=== PATIENT | female | born 1945 | race African-American/Black ===

== ENCOUNTER 2018-02-08 13:54 | Outpatient (CLI) | payer MEDICARE, MEDICAID ==
--- NOTE | 2018-02-08 15:38 | RAD ---
2 VIEWS LUMBAR SPINE: Date: 02/08/18 INDICATION: Low back pain. FINDINGS: There are five lumbar-type vertebrae. There is mild multilevel disc degenerative disease, most pronounced at L5-S1. There are vascular calc ifications involving the abdominal aorta. No acute fracture or subluxation is evident. Small phleboliths seen within the left pelvis. IMPRESSION: Mild spondylosis of the lumbar spine. No acute osseous abnormality. POS: HEVER
== END 2018-02-08 13:55 | disposition home or self-care (01) ==
LOC: SCSRAD 13:54
PROVIDERS: ATTEND Family Medicine
DX: M54.5 Low back pain (principal); M47.896 Other spondylosis, lumbar region
CPT/HCPCS: 72100